=== PATIENT | female | born 1985 | race Caucasian/White ===

== ENCOUNTER → 2016-03-11 | Outpatient (CLI) | payer OTHER ==
[~2016-03-11] MED LIST: LORT5TAB PO; Z.0.NO CURRENT MEDS
== END ==
LOC: HPND 08:23
PROVIDERS: ATTEND Obstetrics & Gynecology
DX: O24.414 Gestational diabetes mellitus in pregnancy, insulin controlled (principal); O10.913 Unspecified pre-existing hypertension complicating pregnancy, third trimester; N13.30 Unspecified hydronephrosis; Z3A.00 Weeks of gestation of pregnancy not specified
CPT/HCPCS: 76816